=== PATIENT | male | born 1960 | race Caucasian/White ===

== ENCOUNTER 2018-09-21 22:31 | Emergency (ER) | payer OTHER ==
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
[2018-09-22] MEDS ORDERED: KETOROLAC TROMETHAMINE 60 MG/2 ML SDV IM ONE (00:06)
[2018-09-22] MEDS ORDERED: KETOROLAC TROMETHAMINE INJ/PF 30 MG/1 ML SDV IV ONE (00:10)
[2018-09-22 00:18] VITALS: BP 161/73
== END 2018-09-22 00:24 | disposition home or self-care (01) ==
LOC: ER 22:31
DX: S43.111A Subluxation of right acromioclavicular joint, initial encounter (principal); M25.511 Pain in right shoulder; V59.50XA Passenger in pick-up truck or van injured in collision with unspecified motor vehicles in traffic accident, initial encounter
CPT/HCPCS: 99283; 96374; 73000; 73030; J1885